=== PATIENT | male | born 1955 | race Caucasian/White ===

== ENCOUNTER → 2017-03-14 | Day surgery (SDC) | payer OTHER ==
[~2017-03-14] MED LIST: ASPI81TA82 PO; BUPIVACAINE/EPINEPHRINE 0.25% PF 10 ML VIAL ONE; GLUC500C3 PO; KETOROLAC TROMETHAMINE 30 MG/ML (IVP) VIAL IV PUSH ONE; LACTATED RINGER'S 1000 ML INJ 1,000 ML ONE; MIDAZOLAM HCL 2 MG/2 ML VIAL ONE; MULT-65 PO; ONDANSETRON HCL 4 MG/2 ML VIAL IV PUSH ONE; PROPOFOL 200 MG/20 ML AMP IV ONE; SULF1TAB47 PO; ceFAZolin INJ 1,000 MG VIAL ONE; oxyCODONE/ACETAMINOPHEN 5 MG/325 MG TAB ONE
--- NOTE | 2017-03-14 12:45 | TN ---
cc: TRISTON HOLLY M.D. DATE OF SURGERY 03/14/2017 PREOPERATIVE DIAGNOSIS Right knee medial and lateral meniscal tears. POSTOPERATIVE DIAGNOSIS 1. Right knee medial meniscus tear and lateral meniscus tear. 2. Chondromalacia medial femoral condyle grade 3B 3. Chondromalacia lateral femoral condyle grade 3B 4. Large superomedial plica PROCEDURE PERFORMED 1. Right knee arthroscopy with partial medial and lateral meniscectomies. 2. Right knee arthroscopic chondroplasty of the lateral femoral condyle. 3. Right knee arthroscopic debridement of large medial suprapatellar plica. SURGEON Triston Holly MD ANESTHESIA General via laryngeal mask augmented by local infiltration BLOOD LOSS Minimal FLUID REPLACEMENT 600 cc of crystalloid TOURNIQUET TIME 26 minutes at 300 mmHg. SPECIMEN No specimens were sent. COUNTS All counts were correct. COMPLICATIONS There were no intraoperative complications. IMPLANTS None. INDICATIONS FOR PROCEDURE Mr. Jaimes is a 61-year-old gentleman who sustained an injury to his right knee at work back on May 27, 2016. He was treated conservatively at first and was even MMI'd without impairment as he had resolution of his symptoms with injection. Unfortunately, a week or so after he was placed at [facility], he developed recurrent right medial knee pain which was as bad as it was ever was in around the time of the injury. As a result his persistent symptoms and his MRI that was clearly consistent with medial meniscus tear and perhaps even evidence of the lateral meniscus tear, he was being taken to the operating room for right knee arthroscopy for debridement. He was no longer interested in further injections due to the fact that they provided only temporary relief. He was aware of the risks, benefits, potential complications of the procedure and a full written informed consent was obtained. Please also note that we had full permission from his compensation carrier to move forward with surgery as well. DESCRIPTION OF THE PROCEDURE After the patient was verbally identified in the holding area, he had correctly marked his right knee and I had initialed it as well. He was then given one gram of intravenous Ancef as prophylactic antibiotic and taken to the operating suite. He was placed under general laryngeal mask anesthetic and then had a tourniquet applied high well-padded on his right thigh. At this time, he was then prepped with alcohol and Hibiclens and draped in the normal standard fashion including use of an impervious stockinette from the foot all the way up to the midcalf level. At this time, we had a brief time-out confirming the right leg was the appropriate surgical site. The team was in agreement and the case was now begun. Standard anteromedial and anterolateral joint line portals were made under direct vision. The scope was introduced. A small effusion was evacuated. Inflow was initiated and a survey of the joints was as follows. He had moderate hypertrophic synovitis seen in the suprapatellar pouch which was gently debrided, however a large superomedial plica was also identified and this was excised with an oscillating shaver. There was no evidence of any bleeding at this site. The patellofemoral joint showed quite minimal chondromalacia and no significant chondroplasty was required. The patella tracked midline throughout a range of motion. At this time, the medial compartment was now entered. The medial gutter showed no evidence of any loose bodies, but there was the appearance of a peripheral meniscus tear appreciated. It was clear to me that he had a complex medial meniscus tear in the past with a very peripheral component that appeared to be mostly healed, but he also had a more acute appearing medial meniscus tear as well as missing a portion of the central portion of the posterior horn of the medial meniscus as would be expected based on his prior scope in 2003. All the unstable meniscal tissue was debrided with an oscillating shaver and was contoured with hand instruments and then I went ahead and probed the remnant and found that it was stable and would not sublux into the joint. I was now inspecting the joint surface itself and there was some chronic appearing grade 3 and 4 changes of the medial femoral condyle but nothing that required any significant chondroplasty. The chondral pathology medially looked old as the defect was somewhat eburnated. There was some cartilage loss also appreciated on the tibial side, but nothing that required any type of management. The intercondylar notch was now explored. The anterior cruciate ligament was identified and seen intact and was stable, It tensioned appropriately with anterior drawer. The lateral compartment was now entered. There was a relatively large appearing degenerative tear seen at the central portion of the lateral meniscus which was debrided with an oscillating shaver. Further hand instruments were used to contoured it as well. I went ahead and probed the lateral meniscus remnant and it was stable without any evidence of any laxity. The lateral gutter was now explored. No loose bodies or significant synovitis was encountered. Please note that I went ahead and re-explored the medial gutter and I felt as though there was some evidence of some further hypertrophic synovial tissue that as I was debriding it could see that there was a small amount of bleeding associated with it. I went ahead and used the underwater electrocautery to further electrocauterized this site. At this time, the knee was thoroughly irrigated and suctioned decompressed several times. No active bleeding was appreciated. The knee was suction decompressed and instruments were removed. The portals were now closed with 3-0 nylon simple sutures and then 30 cc of 25% Marcaine with epinephrine were then infiltrated subcutaneously as well as intraarticularly for postop pain relief. The knee was then wrapped with Xeroform, 4x4s, ABD's and Rajiv wrap. The tourniquet was let down. He had brisk return of capillary refill and he was taken to recovery room in stable condition. Appropriate postoperative orders have been written. Triston Holly MD Electronically Signed MD DEONTE Noel/WENDY /12:16 PM /12:33 PM MTDNimo
== END | disposition home or self-care (01) ==
LOC: ESDC 09:49
PROVIDERS: ATTEND Orthopaedic Surgery Sports Medicine
DX: S83.231A Complex tear of medial meniscus, current injury, right knee, initial encounter (principal); S83.281A Other tear of lateral meniscus, current injury, right knee, initial encounter; M94.261 Chondromalacia, right knee; M67.51 Plica syndrome, right knee
CPT/HCPCS: 01400; 29880; J0690; J1885; J2250; J2405; J3010; J7120